=== PATIENT | female | born 1960 | race African-American/Black ===

== ENCOUNTER 2016-05-23 15:03 | Inpatient (IN) | payer BC ==
--- NOTE | ~2016-05-23 | DS ---
Discharge Summary [id number] [place]. [address] NAME: NELDA NAVA : 60 STATUS : DIS IN PAT#: [id number] AGE: 55 ADM/REG DATE : 05/23/16 MR#: [id number] REPORT SERV DATE: 05/30/16 DICTATED BY: DATE: REPORT STATUS : Draft TRANSCRIBED BY: MODL DATE: 05/29/16 ADMISSION DATE: 05/23/2016 DISCHARGE DATE: 05/29/2016 DISCHARGE DIAGNOSES: 1. Right breast cellulitis/radiation dermatitis. 2. Right breast pain. 3. Chronic neuropathy. 4. Right breast invasive ductal neuroendocrine carcinoma. 5. Leukopenia. 6. Asthma, history. CONSULTATIONS: 1. Bandar Bethea MD, [facility]. 2. Bandar Orr MD, Plastic Surgery. 3. Edilberto Balderas MD, Radiation Oncology. 4. Bandar Cadet MD, Infectious Disease. PERTINENT TESTS AND PROCEDURES: 1. Chest x-ray, 05/23/2016, impression: No acute cardiopulmonary disease. Bilateral breast tissue expanders in place. 2. Blood cultures x2 sites collected on 05/23/2016, final result: No growth at four days. 3. Right chest wound culture specimen obtained 05/23/2016, final result: Growth of one colony of Enterobacter cloacae. Growth of one colony of diphtheroid-like organisms and Staph species ag neg is probably contamination. CHIEF COMPLAINT UPON ADMISSION: Increased pain, fever, and chills. HOSPITAL COURSE: Please refer to history and physical provided by Xenia Loza, nurse practitioner, on 05/24/2016 for complete details of patient's initial presentation upon admission and health history. Please also refer to consultations dated 05/25/[address] Edilberto Balderas, Radiation Oncology; and Dr. Bandar Cadet, Infectious Disease. Briefly, the patient is a 55-year-old female who was diagnosed in 2015 with breast cancer on the right. The patient underwent neoadjuvant chemotherapy ending in 12/2015 and then underwent right mastectomy, 01/2016. At that time, a left mastectomy was done prophylactically at the patient's request. The patient had bilateral implants placed at that time and healing was uneventful. The patient began radiation therapy after surgery and completed treatments that ended on 05/12/2016. The patient reported that around 05/09/2016, the skin on her right breast became very erythematous and irritated in the field of radiation despite treatment with topical Discharge Summary [address] [place]. [address] NAME: NELDA NAVA : 60 STATUS : DIS IN PAT#: [id number] AGE: 55 ADM/REG DATE : 05/23/16 MR#: [id number] REPORT SERV DATE: 05/30/16 DICTATED BY: DATE: REPORT STATUS : Draft TRANSCRIBED BY: MODL DATE: 05/29/16 Silvadene cream. Irritation progressed with eventual formation of blisters, bullae, and serosanguineous drainage on the side and underneath the breast. The patient also developed low-grade temperature while at home accompanied by intermittent chills. The patient presented to the emergency department on 05/23/2016 for further evaluation and treatment. Upon initial evaluation, the patient was diagnosed with cellulitis to the right breast. Wound culture was obtained and antibiotics were initiated. The patient was admitted for further evaluation and treatment. 1. Right breast cellulitis/radiation dermatitis. The patient has been followed by Infectious Disease, Plastic Surgery, Oncology, and Radiation Oncology throughout this admission. The patient was treated with cefepime and vancomycin throughout this admission with good response. The patient's right breast tissue quality control chemist was evacuated on 05/26/2016 by Plastic Surgery in hopes of providing pain control as well as increased blood supply to promote healing to the affected area. The patient suffered significant partial/full-thickness radiation nolasco to entire right breast and right axillary region. During this admission, there has been a decrease in wound oozing and discomfort. The patient showed signs of subdermal improvement with antibiotic therapy and application of Silvadene cream 4 times daily. The patient will be discharged home on Bactrim and Cipro x7 days to complete extended course of antibiotic therapy. 2. Right breast pain/itching. This is secondary to significant right breast cellulitis and radiation dermatitis/nolasco. Pain has been controlled with narcotics and itching has been mildly relieved with Benadryl and Vistaril p.r.n. The patient was provided pain prescription for Roxicodone for home use as needed to continue achieving reasonable pain control during the healing process. 3. Chronic neuropathy. This is likely related to chemotherapy. Continue patient's home dose of gabapentin. 4. Right breast invasive ductal neuroendocrine carcinoma. The patient completed radiation treatments on 05/12/2016. The patient will follow up with Dr. Balderas, Radiation Oncology; and Dr. Bethea, Oncology. 5. Leukopenia, mild. White blood count stable on day of discharge at 2.8, absolute neutrophil count stable at 1700. Labs will be monitored on an outpatient basis per Oncology. 6. History of asthma. The patient had no signs or symptoms of acute exacerbation during this admission. The patient was counseled to establish relationship with a primary care physician for routine followup and health maintenance. DISCHARGE CONDITION: At the time of discharge, the patient is hemodynamically stable. DISCHARGE DIET: Regular diet as tolerated. DISCHARGE MEDICATIONS: 1. Neurontin 300 mg tablet p.o. three times daily. 2. MiraLAX 17 g p.o. daily at bedtime, hold for diarrhea. 3. Silvadene cream 1% applied to radiation nolasco four times daily until desquamation resolved. 4. Tylenol 325 mg tablet, take two tabs p.o. every four hours as needed. 5. Roxicodone 5 mg tablet, take one to two tabs p.o. every six hours as needed for pain; Discharge Summary [address] [address] NAME: NELDA NAVA : 60 STATUS : DIS IN PAT#: [id number] AGE: 55 ADM/REG DATE : 05/23/16 MR#: [id number] REPORT SERV DATE: 05/30/16 DICTATED BY: DATE: REPORT STATUS : Draft TRANSCRIBED BY: IDALIA DATE: 05/29/16 hold for sedation. 6. Ativan 0.5 mg tablet p.o. twice daily as needed for anxiety. 7. Milk of magnesia 30 mL p.o. daily as needed. 8. Everly nasal spray two to three sprays each nostril as needed. 9. Vistaril 25 mg tablet p.o. every six hours as needed for anxiety/itching. 10.Ventolin one to two puffs inhaled as needed for shortness of breath. 11.Artificial Tears one to two drops applied to both eyes daily as needed. 12.Cipro 500 mg p.o. twice daily x7 days. 13.Bactrim twice daily x7 days. DISCHARGE INSTRUCTIONS: 1. Follow up with Dr. Balderas, Radiation Oncology, on 06/05/2016 at 1:30 p.m. 2. Follow up with Dr. Bethea, [facility], per patient's routine schedule. 3. The patient was educated to obtain new primary care physician for general health maintenance. The patient will check with insurance and get list of approved providers. 4. The patient was educated to return to the emergency department for any acute onset of fever of 100.4 degrees Fahrenheit or higher lasting more than one hour, intractable chills, sweats, increased drainage and redness to site of radiation dermatitis, or any other health concerns that are deviations from her baseline status at the time of this discharge. JOAQUIN/IDALIA Argentina Mcqueen [employer] / [id number] CC: Minesh Cespedes II, MD
--- NOTE | ~2016-05-23 | CN ---
Consultation Report [facility] [address] [place]. [address] NAME: NELDA NAVA : 60 STATUS : ADM IN PAT#: [id number] AGE: 55 ADM/REG DATE : 05/23/16 MR#: [id number] REPORT SERV DATE: 05/25/16 DICTATED BY: OLGA HILL DATE: 05/25/16 REPORT STATUS : Draft TRANSCRIBED BY: MODAnuja DATE: 05/25/16 INFECTIOUS DISEASE CONSULT DATE OF CONSULTATION: REASON FOR REFERRAL: Evaluation and treatment of infection of the right breast. HISTORY OF PRESENT ILLNESS: The patient is a 55-year-old female. She has history of hypertension and asthma. She was diagnosed in 2015 with breast cancer on the right. She underwent neoadjuvant chemotherapy and a fall ending in December and then on 01/23, underwent a right mastectomy. A left mastectomy was done prophylactically at the patient's request. She had bilateral implants placed at that time. They healed well. She began radiation therapy after surgery and completed that on 05/12/2016. She states that beginning 05/09/2016, the skin became very erythematous and irritated in the field of radiation, and despite applying topical treating with Silvadene cream, it grew progressively so since then with formation of blisters, bullae, and then serosanguineous drainage on the side of the breast and under the breast. She had low-grade temperature, some mild malaise, but no fevers or shaking chills. No nausea, vomiting, diarrhea. No skin or soft tissue problems elsewhere. She says it is quite painful. Otherwise, she has no complaints. There has been no trauma or unusual exposures to it other than what has been previously mentioned. PAST MEDICAL HISTORY: Otherwise unremarkable. MEDICATIONS: She is on vancomycin alone. ALLERGIES: SHE HAS NO KNOWN ANTIMICROBIAL ALLERGIES. SOCIAL HISTORY: She does not work outside the home at present. She does smoke, she says, just maybe half a pack of cigarettes per day. She has no history of alcohol or substance abuse. FAMILY HISTORY: Noncontributory. She is single, lives with her stepfather. PHYSICAL EXAMINATION: GENERAL: A nontoxic adult female, in no acute distress. She is alert and oriented x3. VITAL SIGNS: Her temperature at present is 97.5 with a pulse of 86, respirations 16, blood pressure 163/87, weight 79 kg. HEENT: Sclerae clear. No oral lesions. NECK: Supple. LUNGS: Clear. HEART: Regular rate and rhythm. ABDOMEN: Soft, nontender. Positive bowel sounds. BREASTS: The incisions under both breasts are well healed. The right breast is Consultation Report [facility] [address] [facility] [address] NAME: NELDA NAVA : 60 STATUS : ADM IN PAT#: [id number] AGE: 55 ADM/REG DATE : 05/23/16 MR#: [id number] REPORT SERV DATE: 05/25/16 DICTATED BY: OLGA HILL DATE: 05/25/16 REPORT STATUS : Draft TRANSCRIBED BY: IDALIA DATE: 05/25/16 erythematous with superficial excoriations of the skin, almost the entire breast with weeping of serosanguineous fluid, particularly in the lateral breast and under the breasts. There is no fredis purulence or pus. It almost has a burn-like appearance. EXTREMITIES: Without clubbing, cyanosis, or edema. No swollen, red, or hot joints. IV site without signs of inflammation. LABORATORY DATA: White count 4.4 when she came in, 2.7 today; with a hematocrit of 32.9; and platelets 187. BUN and creatinine are 10 and 0.75. Her procalcitonin at admission was less than 0.05. Blood cultures are negative. Culture was taken of the drainage under the breast and that is growing one colony of a gram-negative shahid. IMPRESSION: Cellulitis in an area that probably had inflamed tissue from radiation therapy, but that in all likelihood is now secondarily infected. Staph strep would be the most expected pathogens, but with the possible gram-negative on the culture and the fact she has not responded very well to vancomycin, I do worry that could be a gram-negative or even a mixed infection. RECOMMENDATIONS: 1. Continue vancomycin for now. 2. Add gram-negative shahid coverage with cefepime. 3. Agree with Plastic Surgery evaluation, although at this point, I do not think that it likely involves implant and is unrelated to the original surgery. 4. I will follow the patient with you. I appreciate very much your consulting on this patient. TAWNYA Olga Hill M.D. / [id number] CC: MD Olga Castro M.D. Mark S Womack IV, M.D.
--- NOTE | ~2016-05-23 | HP ---
History And Physical [id number] [facility] [place]. [address] NAME: NELDA NAVA : 60 STATUS : ADM IN PAT#: [id number] AGE: 55 ADM/REG DATE : 05/23/16 MR#: [id number] REPORT SERV DATE: 05/24/16 DICTATED BY: DAPHNE LOZA DATE: 05/23/16 REPORT STATUS : Draft TRANSCRIBED BY: IDALIA DATE: 05/23/16 DATE OF ADMISSION: 05/23/2016 CHIEF COMPLAINT: Increased pain and fever and chills. HISTORY OF PRESENT ILLNESS: This patient is a 55-year-old female, who presented to [facility] emergency room with complaints of increased right chest wall pain along with fever and chills. The patient does present with a history of right breast cancer, is under the care of Dr. Bethea, currently completed radiation on 05/12/2016. The patient states she completed chemotherapy on 12/26/2015. The patient states that since completing radiation, she has had increased pain, unable to control at home, has noted temperature over the past 48 hours of 101.7. She does state that she has had chills, slight drainage from right breast. Does state that the pain is not being controlled by oral narcotics at home. Does state that she has had nausea on and off. She denies shortness of breath, abdominal pain. REVIEW OF SYSTEMS: Otherwise negative review of system, except what is listed above. PAST MEDICAL HISTORY: 1. Right breast cancer. 2. Neuropathy due to chemotherapy. 3. Hypertension. 4. Asthma. PAST SURGICAL HISTORY: 1. Carpal tunnel syndrome. 2. Bilateral mastectomy with reconstruction in January of 2016. 3. Port-A-Cath placement, then removal. 4. Bilateral tubal ligation. SOCIAL HISTORY: The patient is single, smokes. States daily alcohol use. Denies illicit drug use. HOME MEDICATIONS: 1. Albuterol inhaler one to two puffs inhaled p.r.n. for shortness of breath. 2. Artificial tears. 3. Gabapentin 300 mg one p.o. three times daily. 4. Vistaril 25 mg one p.o. every six hours p.r.n. for anxiety. 5. Ativan 0.5 mg one p.o. twice daily p.r.n. for anxiety. 6. Oxycodone 5 mg p.o. every four hours p.r.n. for pain. 7. Windber nasal spray two to three sprays p.r.n. for allergies. 8. Silver Silvadene cream 1% topical three times daily, applying to nolasco. PHYSICAL EXAMINATION: History And Physical [address] [place]. [address] NAME: NELDA NAVA : 60 STATUS : ADM IN PAT#: [id number] AGE: 55 ADM/REG DATE : 05/23/16 MR#: [id number] REPORT SERV DATE: 05/24/16 DICTATED BY: DAPHNE LOZA DATE: 05/23/16 REPORT STATUS : Draft TRANSCRIBED BY: IDALIA DATE: 05/23/16 VITAL SIGNS: Blood pressure 159/85, temperature 98.9, pulse is 98, respirations 18, and O2 saturation 100% on room air. GENERAL: This patient is alert and oriented, in no acute distress. HEENT: Normocephalic. Mucous membranes are moist. Bilateral pupils equal and reactive to light. NECK: No adenopathy. PULMONARY: Lungs are clear bilateral. No wheezes, rales, or rhonchi. CARDIOVASCULAR: The patient is tachycardic. No murmurs. No rubs. ABDOMEN: Soft, nontender to touch. EXTREMITIES: No clubbing, cyanosis, or edema. NEUROLOGIC: The patient is alert and oriented x3. SKIN: Large area under right breast, some flap bloody drainage noted. Area is red and inflamed. LABORATORY DATA: WBC is 4.4, hemoglobin 13.2, hematocrit 39.8, platelet count is 190, lactate is 1.0. Procalcitonin is less than 0.05. Sodium is 140, potassium is 3.8, chloride is 102, carbon dioxide is 27, BUN is 8, creatinine is 0.89, glucose is 79, calcium is 9.1, total protein is 8.8, albumin is 3.7, globulin is 5.1, total bilirubin is 0.6, alkaline phosphatase is 103, ALT is 19, AST is 17. ASSESSMENT AND PLAN: 1. Radiation nolasco. The patient completed radiation on 05/12/2016, upon which the patient states that she has had increased pain and tenderness to site to right breast. We will have wound care evaluate the patient and continue to monitor. 2. Cellulitis to right breast. We will culture site. Antibiotics initiated. We will continue to monitor. 3. Fever. Blood cultures were obtained. Antibiotics initiated. We will continue to monitor patient. 4. Right breast cancer. The patient is followed by Dr. Bethea of [facility]. We will consult Oncology to follow during hospital stay. 5. Right breast pain due to radiation nolasco and cellulitis to right breast. We will provide the patient with Dilaudid p.r.n. for pain as well as oxycodone and continue to monitor pain. The patient is a full code. The patient will be followed by Dr. Marcio Sullivan during her hospital stay. ROSEMARY/IDALIA Daphne Loza NP / [id number] CC: History And Physical [address] [address] NAME: NELDA NAVA : 60 STATUS : ADM IN [facility]#: [id number] AGE: 55 ADM/REG DATE : 05/23/16 MR#: [id number] REPORT SERV DATE: 05/24/16 DICTATED BY: DAPHNE LOZA DATE: 05/23/16 REPORT STATUS : Draft TRANSCRIBED BY: MODAnuja DATE: 05/23/16 Marcio Sullivan MD
[~2016-05-23 15:03] MED LIST: ADVIL PO; ALEVE220 MG PO; AT25 PO; CAT1 PO; CIP5 PO; GOODY'S EX-STR1 EAC1 PO; K500 PO; MOMUD PO; PERCOCET1 TA2 PO; T PO; VENTOLIN HFA INH
[2016-05-23 15:10] LABS: BASOPHILS 0 %; EOSINOPHILS 2.3 %; ER CBC TAT 0 Hrs 07 Mins; HEMATOCRIT 39.8 % (36.0-48.0); HEMOGLOBIN 13.2 g/dL (12.0-16.0); LYMPHOCYTES 18.8 %; LYMPHOCYTES ABSOLUTE 0.83 10/3/uL (0.67-4.30); MEAN CORPUS HGB CONC 33.2 g/dL (32.0-36.0); MEAN CORPUSCULAR HEMOGLOB 27.2 pg (26.0-34.0); MEAN CORPUSCULAR VOLUME 81.9 fL (80-100); MEAN PLATELET VOLUME 8.5 fL (9.2-13.0); MONOCYTES 18.4 %; MONOCYTES ABSOLUTE 0.81 10/3/uL (0.21-1.20); NEUTROPHILS 60.5 %; NEUTROPHILS ABSOLUTE 2.67 10/3/uL (2.02-8.40); PLATELET COUNT 190 10/3/uL (150-400); RBC DISTRIBUTION WIDTH 15.6 % (12.0-16.0); RED CELL COUNT 4.86 10/6/uL (4.0-5.6); WHITE BLOOD CELLS 4.4 10/3/uL (4.5-10.5)
[2016-05-23 15:11] LABS: MANUAL DIFF NO %
[2016-05-23 15:21] LABS: ALBUMIN 3.7 G/DL (3.5-5.0); CALCIUM, SERUM 9.1 MG/DL (8.5-10.4); CHLORIDE, SERUM 102 MMOL/L (96-112); CO2 (CARBON DIOXIDE) 27 MMOL/L (24-34); CREATININE 0.89 MG/DL (0.55-1.02); GFR AFRICAN AMERICAN 85 ML/MIN (>=60); GFR NON AFRICAN AMERICAN 73 ML/MIN (>=60); POTASSIUM, SERUM 3.8 MMOL/L (3.5-5.3); SGOT(AST) 17 U/L (5-40); SGPT(ALT) 19 U/L (5-65); SODIUM, SERUM 140 MMOL/L (135-148); TOTAL BILIRUBIN 0.6 MG/DL (0-1.2)
[2016-05-23 15:22] LABS: PARTIAL THROMBO TIME 30.1 SEC (22.5-37.2)
[2016-05-23 15:23] LABS: A/G RATIO 0.7 (0.7-1.9); ALKALINE PHOSPHATASE 103 U/L (45-117); BUN (BLOOD UREA NITROGEN) 8 MG/DL (6-23); GLOBULIN 5.1 G/DL (2.5-4.1); GLUCOSE, SERUM 79 MG/DL (60-99); PROTIME (NOT ORD) 12.9 SEC (12.0-14.5); TOTAL PROTEIN 8.8 G/DL (6.0-8.5)
[2016-05-23 16:11] LABS: PROCALCITONIN <0.05 ng/mL (<0.5)
[2016-05-23 16:41] LABS: WBC (NOT ORDERED) (RFLEX) 0 (0-5)
[2016-05-23] MEDS ORDERED: VIST25 PO (16:42)
[2016-05-23] MEDS ORDERED: NEUR300 PO (16:42)
[2016-05-23] MEDS ORDERED: OXYCOD PO (16:43)
[2016-05-23] MEDS ORDERED: ATV.5 PO (16:44)
[2016-05-23] MEDS ORDERED: VENTOLIN HFA INH (16:45)
[2016-05-23] MEDS ORDERED: SILVADENE CREAM 1% TOP (16:45)
[2016-05-23] MEDS ORDERED: TEARS PURE OPH (16:50)
[2016-05-23] MEDS ORDERED: OCEAN NAS (16:50)
[2016-05-23 16:51] LABS: ASCORBIC ACID (UR NOT ORDER) NEG (NEG); BILIRUBIN, URINE NEGATIVE (NEG); ER URINALYSIS TAT 0 Hrs 11 Mins; KETONE, URINE NEGATIVE (NEG); LEUKOCYTE ESTERASE(NOT OR NEG (NEG); NITRITE (URINE) NEG (NEG)
[2016-05-24 05:30] LABS: HEMATOCRIT 39.2 % (36.0-48.0); HEMOGLOBIN 12.7 g/dL (12.0-16.0); MEAN CORPUS HGB CONC 32.4 g/dL (32.0-36.0); MEAN CORPUSCULAR VOLUME 83.4 fL (80-100); PLATELET COUNT 164 10/3/uL (150-400); RBC DISTRIBUTION WIDTH 15.7 % (12.0-16.0); WHITE BLOOD CELLS 3.3 10/3/uL (4.5-10.5)
[2016-05-24 05:35] LABS: MANUAL DIFF YES %
[2016-05-24 05:36] LABS: BUN (BLOOD UREA NITROGEN) 11 MG/DL (6-23); CALCIUM, SERUM 8.7 MG/DL (8.5-10.4); CHLORIDE, SERUM 108 MMOL/L (96-112); CO2 (CARBON DIOXIDE) 21 MMOL/L (24-34); CREATININE 0.87 MG/DL (0.55-1.02); GFR AFRICAN AMERICAN 87 ML/MIN (>=60); GFR NON AFRICAN AMERICAN 75 ML/MIN (>=60); GLUCOSE, SERUM 91 MG/DL (60-99); POTASSIUM, SERUM 3.9 MMOL/L (3.5-5.3); SODIUM, SERUM 141 MMOL/L (135-148)
[2016-05-24 06:01] LABS: BAND NEUTROPHILS 4 %; LYMPHOCYTES 24 %; LYMPHOCYTES ABSOLUTE (CALC) 0.79 10/3/uL (0.67-4.30); MONOCYTES 24 %; MONOCYTES ABSOLUTE (CALC) 0.79 10/3/uL (0.21-1.20); NEUTROPHILS ABSOLUTE (CALC) 1.72 10/3/uL (2.02-8.40); SEGMENTED NEUTROPHIL (0) 48 %; TOTAL NUCLEATED CELLS 100
[2016-05-24 06:02] LABS: PLATELET ESTIMATE ADQ (ADEQUATE); RBC MORPHOLOGY NORM (NORMAL)
[2016-05-25 05:17] LABS: HEMOGLOBIN 10.8 g/dL (12.0-16.0); MEAN CORPUS HGB CONC 32.8 g/dL (32.0-36.0); MEAN CORPUSCULAR HEMOGLOB 26.9 pg (26.0-34.0); MEAN PLATELET VOLUME 8.7 fL (9.2-13.0); PLATELET COUNT 187 10/3/uL (150-400); RBC DISTRIBUTION WIDTH 15.5 % (12.0-16.0); RED CELL COUNT 4.01 10/6/uL (4.0-5.6); WHITE BLOOD CELLS 2.7 10/3/uL (4.5-10.5)
[2016-05-25 05:19] LABS: HEMATOCRIT 32.9 % (36.0-48.0); MANUAL DIFF YES %
[2016-05-25 05:34] LABS: BUN (BLOOD UREA NITROGEN) 10 MG/DL (6-23); CALCIUM, SERUM 8.6 MG/DL (8.5-10.4); CHLORIDE, SERUM 108 MMOL/L (96-112); CO2 (CARBON DIOXIDE) 23 MMOL/L (24-34); CREATININE 0.75 MG/DL (0.55-1.02); GFR AFRICAN AMERICAN 104 ML/MIN (>=60); GFR NON AFRICAN AMERICAN 90 ML/MIN (>=60); SODIUM, SERUM 140 MMOL/L (135-148)
[2016-05-25 05:40] LABS: GLUCOSE, SERUM 128 MG/DL (60-99)
[2016-05-25 05:59] LABS: EOSINOPHILS 2 %; EOSINOPHILS ABSOLUTE (CALC) 0.05 10/3/uL (0.0-0.53); LYMPHOCYTES 26 %; MONOCYTES 20 %; MONOCYTES ABSOLUTE (CALC) 0.54 10/3/uL (0.21-1.20); SEGMENTED NEUTROPHIL (0) 52 %; TOTAL NUCLEATED CELLS 100
[2016-05-25 06:00] LABS: PLATELET ESTIMATE ADQ (ADEQUATE); RBC MORPHOLOGY NORM (NORMAL)
[2016-05-26 04:31] LABS: BUN (BLOOD UREA NITROGEN) 10 MG/DL (6-23); CALCIUM, SERUM 8.4 MG/DL (8.5-10.4); CHLORIDE, SERUM 109 MMOL/L (96-112); CO2 (CARBON DIOXIDE) 26 MMOL/L (24-34); CREATININE 0.82 MG/DL (0.55-1.02); GFR AFRICAN AMERICAN 93 ML/MIN (>=60); GFR NON AFRICAN AMERICAN 81 ML/MIN (>=60); GLUCOSE, SERUM 109 MG/DL (60-99); POTASSIUM, SERUM 4.5 MMOL/L (3.5-5.3); SODIUM, SERUM 143 MMOL/L (135-148)
[2016-05-27 05:34] LABS: HEMATOCRIT 34.2 % (36.0-48.0); HEMOGLOBIN 11.2 g/dL (12.0-16.0); MEAN CORPUS HGB CONC 32.7 g/dL (32.0-36.0); MEAN CORPUSCULAR HEMOGLOB 27.5 pg (26.0-34.0); MEAN CORPUSCULAR VOLUME 83.8 fL (80-100); MEAN PLATELET VOLUME 8.5 fL (9.2-13.0); PLATELET COUNT 177 10/3/uL (150-400); RBC DISTRIBUTION WIDTH 15.7 % (12.0-16.0); RED CELL COUNT 4.08 10/6/uL (4.0-5.6); WHITE BLOOD CELLS 3.2 10/3/uL (4.5-10.5)
[2016-05-27 05:37] LABS: MANUAL DIFF YES %
[2016-05-27 05:47] LABS: BUN (BLOOD UREA NITROGEN) 11 MG/DL (6-23); CHLORIDE, SERUM 105 MMOL/L (96-112); CO2 (CARBON DIOXIDE) 26 MMOL/L (24-34); CREATININE 0.73 MG/DL (0.55-1.02); GFR AFRICAN AMERICAN 107 ML/MIN (>=60); GFR NON AFRICAN AMERICAN 93 ML/MIN (>=60); GLUCOSE, SERUM 93 MG/DL (60-99); POTASSIUM, SERUM 4.4 MMOL/L (3.5-5.3); SODIUM, SERUM 139 MMOL/L (135-148)
[2016-05-27 05:57] LABS: BAND NEUTROPHILS 2 %; BASOPHILS 2 %; BASOPHILS ABSOLUTE (CALC) 0.06 10/3/uL (0.0-0.16); LYMPHOCYTES 8 %; LYMPHOCYTES ABSOLUTE (CALC) 0.26 10/3/uL (0.67-4.30); MONOCYTES 12 %; MONOCYTES ABSOLUTE (CALC) 0.38 10/3/uL (0.21-1.20); PLATELET ESTIMATE ADQ (ADEQUATE); RBC MORPHOLOGY NORM (NORMAL); SEGMENTED NEUTROPHIL (0) 76 %; TOTAL NUCLEATED CELLS 100
[2016-05-28 11:07] LABS: BASOPHILS 0.4 %; BASOPHILS ABSOLUTE 0.01 10/3/uL (0.0-0.16); EOSINOPHILS 3.6 %; HEMATOCRIT 35.7 % (36.0-48.0); HEMOGLOBIN 11.5 g/dL (12.0-16.0); IMMATURE GRANULOCYTES 0.4 %; IMMATURE GRANULOCYTES ABSOLUTE 0.01 10/3/uL (0.0-0.11); LYMPHOCYTES 22.1 %; LYMPHOCYTES ABSOLUTE 0.62 10/3/uL (0.67-4.30); MEAN CORPUS HGB CONC 32.2 g/dL (32.0-36.0); MEAN CORPUSCULAR HEMOGLOB 26.9 pg (26.0-34.0); MEAN CORPUSCULAR VOLUME 83.6 fL (80-100); MEAN PLATELET VOLUME 8.3 fL (9.2-13.0); MONOCYTES 17.4 %; MONOCYTES ABSOLUTE 0.49 10/3/uL (0.21-1.20); NEUTROPHILS 56.1 %; NEUTROPHILS ABSOLUTE 1.58 10/3/uL (2.02-8.40); PLATELET COUNT 205 10/3/uL (150-400); RBC DISTRIBUTION WIDTH 15.8 % (12.0-16.0); RED CELL COUNT 4.27 10/6/uL (4.0-5.6); WHITE BLOOD CELLS 2.8 10/3/uL (4.5-10.5)
[2016-05-28 11:08] LABS: MANUAL DIFF NO %
[2016-05-28 11:18] LABS: BUN (BLOOD UREA NITROGEN) 10 MG/DL (6-23); CHLORIDE, SERUM 108 MMOL/L (96-112); CO2 (CARBON DIOXIDE) 29 MMOL/L (24-34); GFR AFRICAN AMERICAN 83 ML/MIN (>=60); GFR NON AFRICAN AMERICAN 72 ML/MIN (>=60); GLUCOSE, SERUM 82 MG/DL (60-99); POTASSIUM, SERUM 4.1 MMOL/L (3.5-5.3); SODIUM, SERUM 142 MMOL/L (135-148)
[2016-05-29 08:34] LABS: BASOPHILS 0.3 %; BASOPHILS ABSOLUTE 0.01 10/3/uL (0.0-0.16); EOSINOPHILS 4.2 %; EOSINOPHILS ABSOLUTE 0.13 10/3/uL (0.0-0.53); HEMATOCRIT 35.8 % (36.0-48.0); HEMOGLOBIN 11.8 g/dL (12.0-16.0); IMMATURE GRANULOCYTES 0.3 %; IMMATURE GRANULOCYTES ABSOLUTE 0.01 10/3/uL (0.0-0.11); LYMPHOCYTES 25.1 %; LYMPHOCYTES ABSOLUTE 0.77 10/3/uL (0.67-4.30); MEAN CORPUSCULAR HEMOGLOB 27.2 pg (26.0-34.0); MEAN CORPUSCULAR VOLUME 82.5 fL (80-100); MEAN PLATELET VOLUME 8.7 fL (9.2-13.0); MONOCYTES 14.3 %; MONOCYTES ABSOLUTE 0.44 10/3/uL (0.21-1.20); NEUTROPHILS 55.8 %; NEUTROPHILS ABSOLUTE 1.71 10/3/uL (2.02-8.40); PLATELET COUNT 206 10/3/uL (150-400); RBC DISTRIBUTION WIDTH 15.3 % (12.0-16.0); RED CELL COUNT 4.34 10/6/uL (4.0-5.6); WHITE BLOOD CELLS 3.1 10/3/uL (4.5-10.5)
[2016-05-29 08:35] LABS: MANUAL DIFF NO %
[2016-05-29 08:44] LABS: BUN (BLOOD UREA NITROGEN) 11 MG/DL (6-23); CALCIUM, SERUM 8.8 MG/DL (8.5-10.4); CHLORIDE, SERUM 106 MMOL/L (96-112); CO2 (CARBON DIOXIDE) 27 MMOL/L (24-34); CREATININE 0.92 MG/DL (0.55-1.02); GFR AFRICAN AMERICAN 81 ML/MIN (>=60); GFR NON AFRICAN AMERICAN 70 ML/MIN (>=60); GLUCOSE, SERUM 110 MG/DL (60-99); POTASSIUM, SERUM 3.9 MMOL/L (3.5-5.3); SODIUM, SERUM 140 MMOL/L (135-148)
[2016-05-29] MEDS ORDERED: CIP5 PO (11:40)
[2016-05-29] MEDS ORDERED: MIRALAX POWDER1 PKT PO (11:40)
[2016-05-29] MEDS ORDERED: T PO (11:41)
[2016-05-29] MEDS ORDERED: MOMUD PO (11:43)
== END 2016-05-29 13:55 | disposition home health service (06) | DRG 607 ==
LOC: ER 15:03 → 4EA 16:55
PROVIDERS: Internal Medicine; Nurse Practitioner; Nurse Practitioner Family
DX: L59.8 Other specified disorders of the skin and subcutaneous tissue related to radiation (principal); C50.911 Malignant neoplasm of unspecified site of right female breast; G62.89 Other specified polyneuropathies; T21.01XA Burn of unspecified degree of chest wall, initial encounter; J45.909 Unspecified asthma, uncomplicated
CPT/HCPCS: 71010; 80048; 80053; 80202; 81001; 83605; 84145; 85025; 85610; 85730; 87040; 87070; 87077; 87186; 87205; 96374; 96375; 99285; A9270-GY; J0360; J0690; J0692; J1170; J1200; J2405; J2550; J3370

== ENCOUNTER 2016-06-17 16:33 | Emergency (ER) | payer BC ==
[~2016-06-17 16:33] MED LIST changes: +ATV.5 PO; +MIRALAX POWDER1 PKT PO; +NEUR300 PO; +OCEAN NAS; +OXYCOD PO; +SILVADENE CREAM 1% TOP; +TEARS PURE OPH; +VIST25 PO
== END 2016-06-17 18:54 | disposition home or self-care (01) ==
LOC: ER 16:33
DX: S39.012A Strain of muscle, fascia and tendon of lower back, initial encounter (principal); S66.912A Strain of unspecified muscle, fascia and tendon at wrist and hand level, left hand, initial encounter; S46.812A Strain of other muscles, fascia and tendons at shoulder and upper arm level, left arm, initial encounter; R51 Headache; I10 Essential (primary) hypertension; Z88.8 Allergy status to other drugs, medicaments and biological substances; Z88.5 Allergy status to narcotic agent; Z79.899 Other long term (current) drug therapy; W19.XXXA Unspecified fall, initial encounter
CPT/HCPCS: 70450; 72100; 73080-LT; 73110-LT; 99284; A9270-GY